=== PATIENT | male | born 1975 | race Caucasian/White ===

== ENCOUNTER 2019-10-04 07:37 | Emergency (ER) | payer OTHER ==
[~2019-10-04] VITALS: Ht 175.3 cm; Wt 81.6 kg
[~2019-10-04 07:37] MED LIST: INTESTINEX1 CA1 PO; PROTONIX40 MG PO
[2019-10-04] MEDS ORDERED: BENADRYL25 MG (08:01)
[2019-10-04] MEDS ORDERED: DEPAKOTE ER500 MG PO (08:01)
== END 2019-10-04 08:25 | disposition home or self-care (01) ==
LOC: ER 07:37
DX: R51 Headache (principal)

== ENCOUNTER 2019-11-26 05:49 | Emergency (ER) | payer OTHER ==
[~2019-11-26] VITALS: Ht 175.3 cm; Wt 81.6 kg
[~2019-11-26 05:49] MED LIST changes: +BENADRYL25 MG; +DEPAKOTE ER500 MG PO
[2019-11-26] MEDS ORDERED: RISPERDAL2 MG (06:19)
== END 2019-11-26 13:54 | disposition home or self-care (01) ==
LOC: ER 05:49
DX: G43.909 Migraine, unspecified, not intractable, without status migrainosus (principal); R19.7 Diarrhea, unspecified

== ENCOUNTER 2019-12-09 04:18 | Emergency (ER) | payer OTHER ==
[~2019-12-09] VITALS: Ht 175.3 cm; Wt 81.6 kg
[~2019-12-09 04:18] MED LIST changes: +RISPERDAL2 MG
[2019-12-09] MEDS ORDERED: BUTALB-ACETAMI1 EACH PO (09:16)
== END 2019-12-09 09:29 | disposition home or self-care (01) ==
LOC: ER 04:18
DX: R51 Headache (principal)

== ENCOUNTER 2020-01-02 02:15 | Inpatient (IN) | payer OTHER ==
[~2020-01-02] VITALS: Ht 175.3 cm; Wt 81.6 kg
[~2020-01-02 02:15] MED LIST changes: +BUTALB-ACETAMI1 EACH PO
[2020-01-06] MEDS ORDERED: FLAGYL500MG PO (13:55)
[2020-01-06] MEDS ORDERED: AVIDOXY100 MG PO (13:55)
[2020-01-31] MEDS ORDERED: LORAZEPAM1 MG PO (05:17)
== END 2020-01-06 18:25 | disposition home or self-care (01) | DRG 395 ==
LOC: ER 02:15 → MEDI 14:04
PROVIDERS: ADMIT Internal Medicine; ATTEND Internal Medicine
PROC: BW21Y0Z Computerized Tomography (CT Scan) of Abdomen and Pelvis using Other Contrast, Unenhanced and Enhanced (ICD-10-PCS; principal; 2020-01-02)
DX: K62.89 Other specified diseases of anus and rectum (principal); F20.9 Schizophrenia, unspecified; R10.32 Left lower quadrant pain

== ENCOUNTER → 2020-01-31 | Emergency (ER) | payer OTHER ==
[~2020-01-31] VITALS: Ht 175.3 cm; Wt 81.6 kg
[~2020-01-31] MED LIST changes: +AMOX-CLAV 875-1 EACH PO; +AVIDOXY100 MG PO; +FLAGYL500MG PO; +LORAZEPAM1 MG PO
== END | disposition left against medical advice (07) ==
LOC: ER 05:04
DX: K80.10 Calculus of gallbladder with chronic cholecystitis without obstruction (principal)

== ENCOUNTER 2020-02-02 08:18 | Inpatient (IN) | payer OTHER ==
[~2020-02-02] VITALS: Ht 175.3 cm; Wt 86.2 kg
[~2020-02-02 08:18] MED LIST changes: -AMOX-CLAV 875-1 EACH PO
[2020-02-06] MEDS ORDERED: AMOX-CLAV 875-1 EACH PO (17:52)
== END 2020-02-06 18:22 | disposition home or self-care (01) | DRG 446 ==
LOC: ER 08:18 → SEC-K 17:20 → MEDI 17:20
PROVIDERS: ADMIT Internal Medicine; ATTEND Internal Medicine
PROC: CF141ZZ Planar Nuclear Medicine Imaging of Gallbladder using Technetium 99m (Tc-99m) (ICD-10-PCS; principal; 2020-02-03)
PROC: BW40ZZZ Ultrasonography of Abdomen (ICD-10-PCS; 2020-02-03)
DX: K80.12 Calculus of gallbladder with acute and chronic cholecystitis without obstruction (principal); F20.9 Schizophrenia, unspecified; Z03.818 Encounter for observation for suspected exposure to other biological agents ruled out

== ENCOUNTER 2020-02-14 09:43 | Outpatient (CLI) | payer OTHER ==
[~2020-02-14 09:43] MED LIST changes: +AMOX-CLAV 875-1 EACH PO
== END 2020-02-14 09:56 | disposition home or self-care (01) ==
LOC: LAB 09:43
PROVIDERS: ATTEND Internal Medicine
DX: K80.80 Other cholelithiasis without obstruction (principal); K80.10 Calculus of gallbladder with chronic cholecystitis without obstruction; E11.9 Type 2 diabetes mellitus without complications; E03.8 Other specified hypothyroidism

== ENCOUNTER 2020-02-22 08:39 | Emergency (ER) | payer OTHER ==
[~2020-02-22] VITALS: Ht 175.3 cm; Wt 72.6 kg
[~2020-02-22 08:39] MED LIST changes: -KETO10TA2 PO; -LEVSIN/SL0.125 MG SL; -PEPCID AC20 MG PO
[2020-02-22] MEDS ORDERED: LEVSIN/SL0.125 MG SL (11:27)
[2020-02-22] MEDS ORDERED: KETO10TA2 PO (11:27)
== END 2020-02-22 12:42 | disposition home or self-care (01) ==
LOC: ER 08:39
DX: R10.13 Epigastric pain (principal)

== ENCOUNTER → 2020-02-22 | Emergency (ER) | payer OTHER ==
[~2020-02-22] MED LIST changes: +KETO10TA2 PO; +LEVSIN/SL0.125 MG SL; +PEPCID AC20 MG PO
== END | disposition left against medical advice (07) ==
LOC: ER 06:51
DX: Z53.20 Procedure and treatment not carried out because of patient's decision for unspecified reasons (principal)

== ENCOUNTER 2020-03-11 01:31 | Emergency (ER) | payer OTHER ==
[~2020-03-11] VITALS: Ht 175.3 cm; Wt 86.2 kg
[~2020-03-11 01:31] MED LIST changes: +KETO10TA2 PO; +LEVSIN/SL0.125 MG SL
[2020-03-11] MEDS ORDERED: PEPCID AC20 MG PO (08:27)
== END 2020-03-11 09:34 ==
LOC: ER 01:31
DX: B34.9 Viral infection, unspecified (principal); K52.89 Other specified noninfective gastroenteritis and colitis; J11.1 Influenza due to unidentified influenza virus with other respiratory manifestations; Z20.828 Contact with and (suspected) exposure to other viral communicable diseases

== ENCOUNTER → 2020-04-10 | Emergency (ER) | payer OTHER ==
[~2020-04-10] MED LIST changes: +PEPCID AC20 MG PO
== END | disposition left against medical advice (07) ==
LOC: ER 04:41
DX: Z53.20 Procedure and treatment not carried out because of patient's decision for unspecified reasons (principal)

== ENCOUNTER 2020-07-07 04:43 | Emergency (ER) | payer OTHER ==
[~2020-07-07] VITALS: Ht 175.3 cm; Wt 86.2 kg
== END 2020-07-07 12:05 | disposition home or self-care (01) ==
LOC: ER 04:43
DX: K29.60 Other gastritis without bleeding (principal); R10.13 Epigastric pain

== ENCOUNTER 2020-07-24 03:26 | Emergency (ER) | payer OTHER ==
[~2020-07-24] VITALS: Ht 175.3 cm; Wt 86.2 kg
[2020-07-24] MEDS ORDERED: PEPCID AC20 MG PO (05:28)
[2020-07-24] MEDS ORDERED: CARAFATE1 GM PO (05:28)
[2020-08-02] MEDS ORDERED: BENADRYL ALLERG25 MG PO (10:46)
[2020-08-02] MEDS ORDERED: RISPERDAL1 MG PO (10:46)
[2020-08-02] MEDS ORDERED: VISTARIL25 MG PO (10:46)
[2020-08-02] MEDS ORDERED: CARAFATE1 GM PO (13:34)
[2020-08-02] MEDS ORDERED: LANSOPRAZOLE30 MG PO (13:34)
== END 2020-07-24 05:35 | disposition home or self-care (01) ==
LOC: ER 03:26
DX: R10.13 Epigastric pain (principal)

== ENCOUNTER → 2020-08-02 | Emergency (ER) | payer OTHER ==
[~2020-08-02] VITALS: Ht 175.3 cm; Wt 81.6 kg
[~2020-08-02] MED LIST changes: +BENADRYL ALLERG25 MG PO; +CARAFATE1 GM PO; +LANSOPRAZOLE30 MG PO; +RISPERDAL1 MG PO; +VISTARIL25 MG PO
== END | disposition home or self-care (01) ==
LOC: ER 10:35
DX: K29.60 Other gastritis without bleeding (principal)

== ENCOUNTER → 2020-09-05 | Emergency (ER) | payer OTHER ==
[~2020-09-05] VITALS: Ht 175.3 cm; Wt 81.6 kg
== END | disposition left against medical advice (07) ==
LOC: ER 01:53
DX: Z53.20 Procedure and treatment not carried out because of patient's decision for unspecified reasons (principal)

== ENCOUNTER → 2020-09-15 | Emergency (ER) | payer OTHER ==
[~2020-09-15] VITALS: Ht 175.3 cm; Wt 81.6 kg
== END | disposition left against medical advice (07) ==
LOC: ER 06:13
DX: Z53.20 Procedure and treatment not carried out because of patient's decision for unspecified reasons (principal)

== ENCOUNTER → 2021-05-24 | Emergency (ER) | payer OTHER ==
[~2021-05-24] VITALS: Ht 175.3 cm; Wt 65.8 kg
== END | disposition left against medical advice (07) ==
LOC: ER 04:13
DX: R50.83 Postvaccination fever (principal); R53.81 Other malaise; T50.B95A Adverse effect of other viral vaccines, initial encounter; Y92.89 Other specified places as the place of occurrence of the external cause

== ENCOUNTER → 2021-05-29 | Emergency (ER) | payer OTHER ==
[~2021-05-29] VITALS: Ht 175.3 cm; Wt 59.0 kg
== END | disposition left against medical advice (07) ==
LOC: ER 01:13
DX: L29.8 Other pruritus (principal); J02.8 Acute pharyngitis due to other specified organisms